=== PATIENT | male | born 2000 | race Hispanic/Latino ===

== ENCOUNTER 2018-12-25 23:34 | Emergency (ER) | payer OTHER ==
[~2018-12-25] VITALS: Ht 167.6 cm; Wt 83.9 kg
[2018-12-25] MEDS ORDERED: TETANUS/DIPHTHERIA TOX ADULT 0.5 ML SYR IM STA (23:43)
[2018-12-25] MEDS ORDERED: DOXYCYCLINE HYCLATE TABLET 100 MG TAB PO STA (23:43)
[2018-12-25] MEDS ORDERED: LIDOCAINE HCL 1% LOCAL INJ 20 ML VIAL INJ STA (23:43)
[2018-12-25] MEDS ORDERED: ACETAMINOPHEN 325 MG TAB PO ONE (23:45)
[2018-12-25] MEDS ORDERED: IBUPROFEN 200 MG TAB PO ONE (23:45)
[2018-12-25] MEDS ORDERED: ONDANSETRON HCL 4 MG ORAL DISINTEGRATING TAB PO ONE (23:45)
[2018-12-26 01:06] VITALS: BP 113/63
== END 2018-12-26 01:19 | disposition home or self-care (01) ==
LOC: ER 23:34
DX: L05.01 Pilonidal cyst with abscess (principal)
CPT/HCPCS: 10081; 90471; 90714; 99283; J2001; Q0162

== ENCOUNTER → 2021-12-08 | Day surgery (SDC) | payer BC ==
[~2021-12-08] MED LIST: FENTANYL CITRATE/PF 100MCG/2 ML INJ ONE; LIDOCAINE HCL 2% LOCAL INJ 5 ML SDV VIAL INJ ONE; MIDAZOLAM HCL 2 MG/2 ML VIAL ONE; PHENYLEPHRINE HCL 1% 10 MG/ML VIAL ONE; POVIDONE IODINE 0.05% 0.05 % ML PO ONE; PROPOFOL IV EMULSION 10 MG/ML 20 ML VIAL ONE
[2021-12-08 15:30] LABS: WBC,FECAL (FECAL LACTOFERRIN) NEGATIVE (NEGATIVE)
[2021-12-08 15:45] VITALS: BP 100/76
== END | disposition home or self-care (01) ==
LOC: OR 11:04
PROVIDERS: ATTEND Internal Medicine Gastroenterology
DX: K52.9 Noninfective gastroenteritis and colitis, unspecified (principal); K62.89 Other specified diseases of anus and rectum; K57.30 Diverticulosis of large intestine without perforation or abscess without bleeding; K64.8 Other hemorrhoids; Z71.3 Dietary counseling and surveillance; Z68.31 Body mass index [BMI] 31.0-31.9, adult; Z80.0 Family history of malignant neoplasm of digestive organs
CPT/HCPCS: 45380; 83630; 83993; 87045; 87177; 87324; 87328; 87449; J2001; J2370; J2704; J2250; J3010

== ENCOUNTER 2022-05-31 10:25 | Emergency (ER) | payer BC ==
[~2022-05-31] VITALS: Ht 167.6 cm; Wt 83.9 kg
[2022-05-31] MEDS ORDERED: KETOROLAC TROMETHAMINE 30 MG/ML VIAL IV STA (11:11)
[2022-05-31] MEDS ORDERED: ONDANSETRON HCL INJ 2MG/ML 2ML 2 MG/ML VIAL IV PRN (11:15)
[2022-05-31] MEDS ORDERED: IOPAMIDOL 370 MG/ML 100 ML INFUS..BTL INJ ONE (11:32)
[2022-05-31 11:37] LABS: BASOPHILS # (AUTO) 0.1 (0.0-0.1); BASOPHILS % 0.5 % (0.0-1.0); EOSINOPHILS # (AUTO) 0.4 (0.0-0.4); EOSINOPHILS % 2.7 % (0.0-6.0); HEMATOCRIT 46.5 % (38.2-49.6); HEMOGLOBIN 15.8 g/dL (14.0-18.0); LYMPHOCYTES # (AUTO) 3.3 (1.0-3.2); LYMPHOCYTES % 25.4 % (18.0-39.1); MEAN CORPUSCULAR HEMOGLOBIN 29.7 pg (28-32); MEAN CORPUSCULAR VOLUME 87.4 fL (81-99); MONOCYTES # (AUTO) 0.7 (0.2-0.8); MONOCYTES % 5.4 % (4.4-11.3); NEUTROPHILS # (AUTO) 8.5 (2.1-6.9); NEUTROPHILS % 65.3 % (38.7-80.0); PLATELET COUNT 269 x10e3/uL (140-360); RED BLOOD COUNT 5.32 x10e6/uL (4.3-5.7)
[2022-05-31 11:51] LABS: ALBUMIN 4.4 g/dL (3.5-5.0); ALBUMIN/GLOBULIN RATIO 1.3 (0.8-2.0); CALCIUM 9.4 mg/dL (8.4-10.2); CREATININE, SERUM 1.1 mg/dL (0.72-1.25)
[2022-05-31] MEDS ORDERED: PROMETHAZINE HCL (IM) 25 MG/ML VIAL IM ONE ×2 (11:56→12:15)
[2022-05-31 12:15] LABS: CLARITY,URINE CLEAR (CLEAR); COLOR,URINE YELLOW (YELLOW); KETONES,URINE NEGATIVE (NEGATIVE); LEUKOCYTE ESTERASE ,URINE NEGATIVE (NEGATIVE); NITRITE,URINE NEGATIVE (NEGATIVE); PROTEIN,URINE DIPSTICK NEGATIVE (NEGATIVE); URINE UROBILINOGEN 0.2 mg/dL (0.2 - 1)
[2022-05-31 12:16] LABS: WBC,URINE (MAN) 0-5 /HPF (0-5)
[2022-05-31 12:17] LABS: BACTERIA,URINE FEW /HPF; EPITHELIAL CELLS,URINE RARE /LPF; RBC,URINE 0-5 /HPF (0-5)
[2022-05-31] MEDS ORDERED: ACETAMINOPHEN-1 EAC4 PEG (12:40)
[2022-05-31] MEDS ORDERED: KETOROLAC TROME10 MG PO (12:40)
[2022-05-31] MEDS ORDERED: FLOMAX0.4 MG PO (12:40)
[2022-05-31] MEDS ORDERED: ONDANSETRON ODT4 MG PO (12:40)
[2022-05-31] MEDS ORDERED: TAMSULOSIN HCL 0.4 MG CAP PO SCH (12:45)
== END 2022-05-31 13:07 | disposition home or self-care (01) ==
LOC: ER 10:29
DX: R11.2 Nausea with vomiting, unspecified (principal); N13.2 Hydronephrosis with renal and ureteral calculous obstruction; R10.12 Left upper quadrant pain
CPT/HCPCS: 36415; 74177; 80053; 81001; 83690; 85025; 99284; J1885; J2405; J2550; Q9967